=== PATIENT | male | born 1945 | race Caucasian/White ===

== ENCOUNTER 2016-08-22 20:25 | Emergency (ER) | payer MEDICARE ==
[~2016-08-22 20:25] MED LIST: ABSORBASE TOP; ATORVASTATIN CA40 M1 PO; ATORVASTATIN CA80 M1 PO; CARDIZEM CD240 M1 PO; COLACE100 M1 PO; COUMADIN5 M2 PO; COUMADIN7.5 M1 PO; COZAAR50 M1 PO; FUROSEMIDE40 M2 PO; GLIPIZIDE XL2.5 MG; HUMALOG MI100 UNITS1 SC; HUMALOG100 UNIT/2 SQ; LANTUS SOL100 UNIT/1 SQ; LANTUS100 UNITS/ SC; LIPITOR40 M1 PO; LISINOPRIL10 MG; LISINOPRIL40 M1 PO; LOPRESSOR50 M1 PO; METFORMIN HCL1000 MG; MIRALAX17 G2 PO; PACERONE200 M1 PO; POTASSIUM CHLO10 ME1 PO; PRINIVIL5 M1 PO; SOTALOL80 M1 PO; TAMIFLU75 MG/CAP PO; TRIAMCINOLONE A15 G2 TOP; ZOCOR40 MG
[2016-08-22] MEDS ORDERED: VIBRAMYCIN100 M1 PO (20:50)
[2016-08-22] MEDS ORDERED: SIMETHICONE80 M3 PO (20:50)
[2016-08-22] MEDS ORDERED: CLARITIN10 M6 PO (20:50)
[2016-08-22] MEDS ORDERED: HUMALOG100 UNITS/ SC (20:54)
[2016-08-22 21:38] LABS: INR 3.4 INR (0.9-1.1); PROTHROMBIN TIME 40.4 SECONDS (9.0-13.6)
[2016-08-22 21:39] LABS: BASO % 0.4 % (0-2); EOS % 2.3 % (0-7); EOSINOPHIL ABSOLUTE COUNT 0.1 tho/cmm (0.0-0.7); HCT-HEMATOCRIT 38.9 % (36.0-53.5); IMMATURE GRANULOCYTES ABSOLUTE 0.01 tho/cmm (0-0.03); IMMATURE GRANULOCYTES PERCENT 0.2 % (0-0.3); LYMPH % 30.4 % (20-45); LYMPH ABSOLUTE COUNT 1.6 tho/cmm (0.8-4.5); MCH (MEAN CORPUSCULAR HGB) 28.9 pg (28.0-32.0); MCHC MEAN CORPUSCULAR HGB CONC 33.4 % (32.0-36.0); MCV (MEAN CELL VOLUME) 86.4 fl (82.0-96.0); MEAN PLATELET VOLUME 10.2 cmc (9.4-12.4); MONO % 12.1 % (0-12); MONOCYTE ABSOLUTE COUNT 0.6 tho/cmm (0.0-1.2); NEUTROPHIL ABSOLUTE COUNT 2.9 tho/cmm (1.6-8.0); NEUTROPHIL-AUTOMATED 2.9 tho/cmm (1.6-8.0); NEUTROPHILS % 54.6 % (40-80); PLATELET COUNT 157 tho/cmm (150-450); RED CELL DISTRIBUTION WIDTH 13.2 % (12.4-16.4); WHITE BLOOD COUNT 5.3 tho/cmm (4.0-10.0)
[2016-08-22 21:50] LABS: ALB/GLOB RATIO 0.7 (0.8-2.0); ALBUMIN 3.1 g/dl (3.5-5.0); ALKALINE PHOSPHATASE 111 U/L (33-138); ALT/SGPT 32 U/L (12-78); ANION GAP 14 mmol/L (0-20); AST/SGOT 29 U/L (10-40); BILIRUBIN,TOTAL 0.4 mg/dl (0.0-1.5); BLOOD UREA NITROGEN 15 mg/dl (6-24); CALCIUM 8.4 mg/dl (8.5-10.5); CARBON DIOXIDE-VENOUS 25 mmol/L (22-32); CHLORIDE 108 mmol/l (96-110); GLUCOSE 147 mg/dL (70-110); POTASSIUM 3.9 mmol/L (3.7-5.1); SODIUM 143 mmol/L (135-145); eGFR VALUE FOR BLACK 88 mL/Min
[2016-08-22] MEDS ORDERED: CHERATUSSIN AC118 M1 PO (22:49)
== END 2016-08-22 23:10 ==
LOC: EDMED 20:25
PROVIDERS: Emergency Medicine
DX: J20.9 Acute bronchitis, unspecified (principal); R42 Dizziness and giddiness; T45.0X5A Adverse effect of antiallergic and antiemetic drugs, initial encounter; I48.91 Unspecified atrial fibrillation; E11.9 Type 2 diabetes mellitus without complications; I10 Essential (primary) hypertension; E78.5 Hyperlipidemia, unspecified; Z79.01 Long term (current) use of anticoagulants
CPT/HCPCS: J7030